=== PATIENT | male | born 1945 | race Caucasian/White ===

== ENCOUNTER 2022-04-23 13:06 | Observation (INO) ==
--- NOTE | 2022-04-23 13:21 | Emergency Department Note ---
Abdominal Pain HPI General Chief Complaint: Flank Pain Stated Complaint: R side sharp pain Time Seen by Provider: 04/23/22 13:19 Source: patient Mode of arrival: ambulatory Limitations: no limitations History of Present Illness HPI Narrative: Narrative: Patient presents emergency department by private vehicle with his with complaint of sudden onset of acute right lower quadrant abdominal pain that is also associated with right lower back or flank pain. Says the pain came on stabbing and suddenly initially was very intense and calm down and became intense again calm down that over the last couple hours it become more steady. He stated his when his symptoms first started 2 hours prior to arrival he felt like he had to have a bowel movement once he had a bowel movement the had worsening pain in the right lower quadrant and the right flank. The pain started after the bowel movement however. He denies any recent fever, chills, or unusual bowel movement. No dysuria or increased urinary frequency. He does admit to having nausea and vomiting the first event occurring secondary to significant pain. He has not had any other emesis however he is continues to be nauseous. He has baseline normal state of health otherwise and has not had any recent cough, chills, chest pain, difficulty breathing. He does not have chronic back pain. Related Data Home Medications Medication Instructions Recorded Confirmed multivitamin 1 cap PO DAILY 06/17/17 02/11/22 vitamins A,C,P-[id number] 14,320 1 each PO DAILY 09/09/18 02/11/22 unit-226 mg-200 unit capsule coenzyme Q10 [CoQ-10] 300 mg PO DAILY 12/28/18 02/11/22 saw palmetto 160 mg capsule 160 mg PO QDAY 12/28/18 02/11/22 Previous Rx's Medication Instructions Recorded rosuvastatin 20 mg tablet 20 mg PO QDAY #90 tabs 07/03/21 tadalafil 5 mg tablet (Cialis) 5 mg PO QDAY #90 tabs 10/23/21 azithromycin 250 mg tablet See Rx Instructions PO .COMPLEX #6 02/11/22 (Zithromax) tabs chloroquine phosphate 500 mg tablet See Rx Instructions PO .COMPLEX #8 02/11/22 tabs prednisone 20 mg tablet 20 mg PO BID 5 days #10 tabs 02/11/22 Allergies Allergy/AdvReac Type Severity Reaction Status Date / Time Penicillins Allergy Unknown Unknown Verified 04/23/22 13:18 Review of Systems ROS ROS Narrative: Narrative: Please see HPI for all pertinent positive and negative and the review of systems. PFSH Narrative Patient History Narrative: Narrative: Medical/Surgical/Family History All Active Problems (Updated 04/23/22 @ 15:03 by Lashawn Jiménez DO) Renal colic on right side (Acute) Ureterolithiasis (Acute) Acute UTI (Acute) Counseling about travel (Acute) Knee pain, left (Acute) Epistaxis (Acute) History of cigarette smoking (Acute) Sore throat (viral) (Acute) Sinus congestion (Acute) Hypogonadism in male (Acute) Hematospermia (Acute) BPH w urinary obs/LUTS (Chronic) Elevated PSA (Acute) Glaucoma (Chronic ~2019) Shoulder pain, right (Chronic) Osteoarthritis (Chronic) Erectile dysfunction (Chronic) Olecranon bursitis, right elbow (Chronic) Seborrheic keratosis (Chronic) URI (upper respiratory infection) (Chronic) Hypothyroidism (Chronic) Hyperlipidemia (Chronic) Tinnitus, left (Chronic) Sinusitis, acute (Chronic) Bronchitis, acute (Chronic) Hyperglycemia (Chronic) Status post insertion of penile implant (Chronic) Acute retention of urine (Chronic) History of transurethral resection of prostate (Chronic) Gross hematuria (Chronic) Medical History BPH w urinary obs/LUTS Mild symptoms but relatively unchanged Bronchitis, acute Elevated PSA Erectile dysfunction Stable with low libido Glaucoma (~2019) Hematospermia History of cigarette smoking Hyperglycemia Hyperlipidemia Hypogonadism in male Hypothyroidism Olecranon bursitis, right elbow Osteoarthritis Seborrheic keratosis Shoulder pain, right Sinusitis, acute Tinnitus, left URI (upper respiratory infection) Surgical History H/O arthroscopic knee surgery History of hernia repair Family History Other No pertinent family history Social History Smoking Status: Former smoker Alcohol Intake Frequency: 0-2 drinks per day Substance Use: does not use Exam Narrative Narrative: Narrative: General Limitations: no limitations General appearance: Present alert, grimacing (Appears uncomfortable and in pain.), in no apparent distress and nontoxic Head Head: Present atraumatic, normocephalic and normal inspection Eye Eye: Present normal appearance and EOMI; Absent scleral icterus, conjunctival injection or periorbital swelling ENT ENT: Present normal external ear exam and other (Normal gross peripheral exam of nose.) Neck Neck: Present normal inspection and trachea midline Chest Chest: Present normal inspection and symmetric chest wall rise Respiratory Respiratory: Present normal lung sounds bilaterally; Absent respiratory distress, stridor or accessory muscle use Cardiovascular Cardiovascular: Present regular rate, normal rhythm and normal heart sounds Adbominal Abdominal: Present soft, tenderness (Moderate to severe right lower quadrant. Pain worse on deep palpation. No rebound tenderness.), guarding (Right lower quadrant, mild.), normal bowel sounds and other (Positive mild to moderate renal CVAT tenderness on the right.); Absent distention, rebound, rigidity, Palafox's sign, ascites or pulsatile mass Rectal Rectal: Present deferred : Present other (Deferred.) Extremities Extremities: Present normal inspection and full ROM (No motion abnormalities noted on gross peripheral examination. No gross deformities to the extremities.); Absent tenderness, pedal edema or pretibial edema Neurological Neurological: Present alert, oriented X3 and CN II-XII intact; Absent motor sensory deficit (On gross peripheral examination.) Psychiatric Psychiatric: Present normal affect, normal mood and pleasant Skin Skin: Present warm (WNL), dry and normal color Course Course Course Narrative: Received call from Dr. Rodarte, radiologist, at approximate 1415 hours reporting a 5 x 7 mm right distal ureteral stone - Full report pending. 1458: Still awaiting CBC and CMP results. Urinalysis performed does show some blood in the urine and some white blood cells with leukocyte esterase suggestive of possible UTI or infection. We will going give patient RocephiN IV. 171: Spoke with Dr. Lopez in the ED. He is already seen and evaluated the patient. He spoke with the patient about coming in the hospital and getting the stone removed. Plan is to admit under his service. Dr. Lopez requests EKG for preop. 175: Reviewed portable chest x-ray which shows no acute process. Radiology overread is still pending. Reevaluation(s) Reevaluation #1: Reevaluate. Stable. States he has a mild amount discomfort like he has a tight belt around his waist. Does not require any further pain medications. He is nausea free. Discussed his diagnosis and plan for hospitalization with Dr. Lopez helping him remove his kidney stone. All questions answered. Patient and his at bedside are both agreeable with the plan of care. Dr. Lopez entering the room at the tail end of my reevaluation to speak with the patient's further about the admission and procedure. Time: 17:21 Consultations Consultation #1: Spoke with Dr. Lopez, urologist on-call regarding patient's presentation, imaging findings and lab findings. He has I speak with powerhouse mechanic see if we have beds available. I tried contacting the powerhouse mechanic at their number and no answer. I have advised the ED PRIMER INSPECTOR of this and she will attempt to contact the powerhouse mechanic for me. Time: 15:35 Consultation #2: Spoke with Dr. Lopez, he asked that a try figure out there is availability in the house for this gentleman so we can accommodate him and potentially get him in as an emergent/urgent removal of his right distal ureteral stone. Time: 15:48 Vital Signs Vital signs: Vital Signs Temperature 97.0 F 04/23/22 13:15 Pulse Rate 60 04/23/22 13:15 Respiratory Rate 18 04/23/22 13:15 Blood Pressure 163/85 04/23/22 13:15 Pulse Oximetry (%) 92 04/23/22 13:15 Oxygen Delivery Method 04/23/22 13:15 Temperature 97.0 F 04/23/22 13:15 Pulse Rate 58 L 04/23/22 16:46 Respiratory Rate 16 04/23/22 16:24 Blood Pressure 104/65 04/23/22 16:46 Pulse Oximetry (%) 93 04/23/22 16:46 Oxygen Delivery Method 04/23/22 13:33 Oxygen Flow Rate (L/min) 93 04/23/22 13:33 [facility] Narrative Medical decision making narrative: Narrative: Patient presents emerged part with acute right lower quadrant Patrick pain and right flank pain. Please see HPI, physical, chart above for full details. CT of the abdomen pelvis without contrast does show a 5 x 7 mm at the right distal ureter. Patient given pain control and antiemetics here in the emergency department. He is feeling better. I spoke with Dr. Lopez, urologist, who will admit to his service and plan for stone extraction tomorrow. Sepsis Sepsis Identified: No Differential Diagnosis Differential Diagnosis: Ureterolithiasis, appendicitis, bowel pathology, UTI Medical Records Medical records reviewed: Yes I reviewed the patient's medical records. Lab Data Lab results reviewed: Yes I reviewed the patient's lab results. Result diagrams: 04/23/22 14:02 04/23/22 14:02 Labs: Lab Results 04/23/22 04/23/22 04/23/22 Range/Units 13:30 14:02 14:02 WBC 8.2 (4.5-11.0) K/mcL RBC 4.71 (4.63-6.08) M/mcL Hgb 14.7 (13.7-17.5) g/dL Hct 43.7 (40.1-51.0) % MCV 92.8 (80.0-100.0) fL MCH 31.2 (26.0-34.0) pg MCHC 33.6 (31.0-36.0) g/dL RDW 12.0 (11.5-14.5) % Plt Count 159 (140-440) K/mcL MPV 11.9 (8.8-12.5) fL Immature Gran % (Auto) 0.4 (0.0-0.5) % Neut % (Auto) 65.8 (38.0-78.0) % Lymph % (Auto) 25.3 (15.5-49.0) % [place] % (Auto) 5.6 (1.0-12.0) % Eos % (Auto) 2.3 (0.0-7.0) % Baso % (Auto) 0.6 (0.0-2.0) % Lymph # (Auto) 2.07 (1.50-4.80) K/mcL [place] # (Auto) 0.46 (0.10-0.90) K/mcL Eos # (Auto) 0.19 (0.00-0.70) K/mcL Baso # (Auto) 0.05 (0.00-0.30) K/mcL Immature Gran # 0.03 (0.00-0.05) K/mcl Absolute Neutrophils 5.39 (1.80-8.00) K/mcL VBG Lactic Acid 1.6 (0.5-2.0) mmol/L Sodium 136 (133-145) mmol/L Potassium 4.0 (3.3-5.1) mmol/L Chloride 101 (96-108) mmol/L Carbon Dioxide 26 (22-30) mmol/L Anion Gap 9.0 (8.0-16.0) BUN 18 (8-23) mg/dL Creatinine 1.4 H (0.7-1.2) mg/dL GFR Calculation 49 Glucose 185 H (70-105) mg/dL Calcium 8.9 (8.6-10.4) mg/dL Total Bilirubin 0.5 (0.1-1.0) mg/dL AST 17 (<40) U/L ALT 24 (<40) U/L Alkaline Phosphatase 70 (39-117) U/L Total Protein 6.8 (5.9-8.4) gm/dL Albumin 4.1 (3.2-5.2) gm/dL Globulin 2.7 (2.2-3.7) gm/dL Albumin/Globulin Ratio 1.5 (1.0-2.3) Lipase 28 (7-60) U/L Urine Color Yellow Urine Appearance Hazy A (Clear) Urine pH 5.0 (5.0-9.0) Ur Specific [place] 1.020 (1.000-1.035) Urine Protein Negative (Negative) mg/dL Urine Glucose (UA) Negative (Negative) mg/dL Urine Ketones Negative (Negative) mg/dL Urine Occult Blood Negative (Negative) mg/dL Urine Nitrate Negative (Negative) Urine Bilirubin Negative (Negative) mg/dL Urine Urobilinogen Negative mg/dL Ur Leukocyte Esterase 25 A (Negative) /uL Urine RBC 9 H (0-3) /hpf Urine WBC 11 H (0-4) /hpf Ur Squamous Epith Cells 0 (0-4) /hpf Calcium Oxalate Crystal Few A (None) /hpf Urine Bacteria None (0) /hpf Urine Mucus Few A (None) /hpf Ur Culture Indicated? yes Radiology Data Radiology results reviewed: Yes I reviewed the patient's radiology results. Radiology results narrative: Ordering Physician:Lashawn Jiménez D.O. Date of Service:04/23/22 Procedure(s):CT abdomen pelvis wo con History: Right flank pain, question kidney stones TECHNIQUE: The abdomen was imaged without contrast in axial plane at 2.5 mm intervals. Sagittal and coronal reformats were created. The radiation exposure was limited using dose reduction technology. FINDINGS: Mild dependent atelectasis is present posteriorly in both lower lobes. The heart is borderline enlarged. Evaluation of the abdominal organs without contrast is somewhat limited. The liver and spleen are normal in size and homogeneous. The gallbladder appears normal without evidence of calcified stones or thickening of the wall. The bile ducts are nondilated. No mass or inflammation are detected in the pancreas. The adrenals are normal and symmetric. There are couple cortical cysts in the right kidney. The measure up to 3.5 cm. In an upper pole calyx of the right kidney there is a 4 x 5 mm nonobstructing stone. Mild hydronephrosis is present in the right kidney. Although the right ureter is not dilated, there is a 5 x 7 mm calculus at the ureterovesical junction. In a lower pole calyx of the left kidney there is a lobulated 7 x 8 mm calculus. There is no hydronephrosis in the left kidney. There are no stones in the left ureter. Urinary bladder is nearly empty and there are no stones within the lumen. Patient has a penile implant with a reservoir located behind the rectus abdominis muscle deep in the left lower pelvis. Prostate is normal in size and contains focal calcifications in the transitional zone. No mass, adenopathy or ascites are present. The bowel pattern is normal. There are couple noninflamed diverticula in the sigmoid and distal descending colon. There is arthritis and disc degeneration at L4-5 with a small posterior bulge and mild to moderate central canal stenosis. IMPRESSION: Bilateral kidney stones Mild hydronephrosis in the right kidney due to a 5 x 7 mm calculus at the ureterovesical junction. Dr. Jiménez was called with the report Interpreted and Authenticated by: Schuyler Rodarte 04/23/22 140 Auto Leasing Manager: <Electronically signed by Schuyler Rodarte M.D. in [place]> 04/23/22 1418 EKG Data EKG #1: EKG attestation: Yes I reviewed and interpreted this EKG. and Yes There are no EKG findings of acute coronary syndrome EKG results narrative: EKG obtained at 1737 hrs. interpreted by myself shows sinus rhythm with bradycardia 56 bpm. Left axis deviation is present. Intervals show DC borderline prolonged at 200 ms and remainder of intervals within normal limits. Morphology show no acute ST elevation or ST depression or acute T wave changes to suggest acute ischemia or infarct. No prior EKG available for comparison. No STEMI. Discharge Plan Patient/Caregiver Discharge Instructions Pt seen by STORAGE BATTERY INSPECTOR AND TESTER/PA only: No Clinical Impression: Renal colic on right side, Ureterolithiasis, Acute UTI Patient Disposition: Xfer As Inpt ([facility]) Follow up with: Florencio Palomares ARNP [Primary Care Provider] - Prescriptions: No Action rosuvastatin 20 mg tablet 20 mg PO QDAY Qty: 90 3RF tadalafil [Cialis] 5 mg tablet 5 mg PO QDAY Qty: 90 4RF prednisone 20 mg tablet 20 mg PO BID 5 Days Qty: 10 0RF azithromycin [Zithromax] 250 mg tablet See Rx Instructions PO .COMPLEX Qty: 6 0RF Rx Instructions: take 500 mg today (day 1), then 250 mg for 4 days (days 2-5) PO chloroquine phosphate 500 mg tablet See Rx Instructions PO .COMPLEX Qty: 8 0RF Rx Instructions: take 500mg same day each week x1wk before exposure, during time in area, and x4wk after leaving PO vitamins A,C,F-fcpu-dbcjvr 1 EACH capsule 1 each PO DAILY multivitamin 1 cap PO DAILY saw palmetto 160 mg capsule 160 mg PO QDAY coenzyme Q10 300 mg PO DAILY
[2022-04-23] MEDS ORDERED: ONDANSETRON 4 MG/2 ML VIAL IV ONE (13:32)
[2022-04-23] MEDS ORDERED: 0.9 % SODIUM CHLORIDE 1,000 ML IV ONE (13:32)
[2022-04-23] MEDS ORDERED: fentaNYL 100 MCG/2 ML VIAL IV PRN (13:32)
[2022-04-23] MEDS ORDERED: KETOROLAC 30 MG/ML VIAL IV ONE (13:32)
--- NOTE | 2022-04-23 14:22 | Cat Scan Report ---
History: Right flank pain, question kidney stones TECHNIQUE: The abdomen was imaged without contrast in axial plane at 2.5 mm intervals. Sagittal and coronal reformats were created. The radiation exposure was limited using dose reduction technology. FINDINGS: Mild dependent atelectasis is present posteriorly in both lower lobes. The heart is borderline enlarged. Evaluation of the abdominal organs without contrast is somewhat limited. The liver and spleen are normal in size and homogeneous. The gallbladder appears normal without evidence of calcified stones or thickening of the wall. The bile ducts are nondilated. No mass or inflammation are detected in the pancreas. The adrenals are normal and symmetric. There are couple cortical cysts in the right kidney. The measure up to 3.5 cm. In an upper pole calyx of the right kidney there is a 4 x 5 mm nonobstructing stone. Mild hydronephrosis is present in the right kidney. Although the right ureter is not dilated, there is a 5 x 7 mm calculus at the ureterovesical junction. In a lower pole calyx of the left kidney there is a lobulated 7 x 8 mm calculus. There is no hydronephrosis in the left kidney. There are no stones in the left ureter. Urinary bladder is nearly empty and there are no stones within the lumen. Patient has a penile implant with a reservoir located behind the rectus abdominis muscle deep in the left lower pelvis. Prostate is normal in size and contains focal calcifications in the transitional zone. No mass, adenopathy or ascites are present. The bowel pattern is normal. There are couple noninflamed diverticula in the sigmoid and distal descending colon. There is arthritis and disc degeneration at L4-5 with a small posterior bulge and mild to moderate central canal stenosis. IMPRESSION: Bilateral kidney stones Mild hydronephrosis in the right kidney due to a 5 x 7 mm calculus at the ureterovesical junction. Dr. Jiménez was called with the report Interpreted and Authenticated by: Schuyler Rodarte 04/23/22
[2022-04-23 14:54] LABS: Appearance,Urine HAZY (Clear); Bilirubin,Urine Negative (Negative); Calcium Oxalate Crystals,Urine FEW /hpf; Color,Urine YELLOW; Culture Indicated,Urine yes; Glucose,Urine (UA) Negative (Negative); Ketones,Urine Negative (Negative); Leukocyte Esterase,Urine 25 /uL (Negative); Mucus,Urine FEW /hpf; Nitrate,Urine Negative (Negative); Protein,Urine Negative (Negative); Urine Blood Negative (Negative); Urine RBC 9 /hpf (0-3); Urine Squamous Epithelial Cell 0 /hpf (0-4); Urine WBC 11 /hpf (0-4); Urobilinogen,Urine Negative
[2022-04-23] MEDS ORDERED: cefTRIAXone 1 GM VIAL IV ONE (15:00)
[2022-04-23 15:09] LABS: Basophils # (Auto) 0.05 K/mcL (0.00-0.30); Basophils % (Auto) 0.6 % (0.0-2.0); Eosinophils # (Auto) 0.19 K/mcL (0.00-0.70); Eosinophils % (Auto) 2.3 % (0.0-7.0); Hematocrit 43.7 % (40.1-51.0); Hemoglobin 14.7 g/dL (13.7-17.5); Lymphocytes # (Auto) 2.07 K/mcL (1.50-4.80); Lymphocytes % (Auto) 25.3 % (15.5-49.0); Mean Cell Volume 92.8 fL (80.0-100.0); Mean Corpuscular HGB Conc 33.6 g/dL (31.0-36.0); Mean Platelet Volume 11.9 fL (8.8-12.5); Monocytes # (Auto) 0.46 K/mcL (0.10-0.90); Monocytes % (Auto) 5.6 % (1.0-12.0); Neutrophils % (Auto) 65.8 % (38.0-78.0); Platelet Count 159 K/mcL (140-440); RBC 4.71 M/mcL (4.63-6.08); WBC 8.2 K/mcL (4.5-11.0)
[2022-04-23 15:31] LABS: ALT/SGPT 24 U/L (<40); AST/SGOT 17 U/L (<40); Albumin 4.1 gm/dL (3.2-5.2); Albumin/Globulin Ratio 1.5 (1.0-2.3); Alkaline Phosphatase 70 U/L (39-117); Bilirubin,Total 0.5 mg/dL (0.1-1.0); Blood Urea Nitrogen 18 mg/dL (8-23); Calcium 8.9 mg/dL (8.6-10.4); Carbon Dioxide 26 mmol/L (22-30); Chloride 101 mmol/L (96-108); Globulin 2.7 gm/dL (2.2-3.7); Glomerular Filtration Rate 49; Glucose 185 mg/dL (70-105)
--- NOTE | 2022-04-23 17:03 | Urology History & Physical ---
HPI History of Present Illness Patient information: Note initiated : 04/23/22 at 4:59 pm Service Date, if different from initiated Date: [] Patient: Tacho Vasquez a 76 y/o M admitted on for R side sharp pain. Chief Complaint: [Right distal ureteral stone with pain] Chief complaint: Right distal ureteral stone with pain History of present illness: Tacho is a 76-year-old male who presented to our emergency department today with the acute onset of right lower quadrant abdominal pain radiating to the right flank. He denied any history of fever, chills, dysuria or urinary frequency. He reported some nausea and emesis. He reports a remote history of stone in 1981 which he passed on his own. He has a history of BPH with urinary obstruction and is status post greenlight photo vaporization of the prostate. He also has a history of erectile dysfunction with placement of a 3 piece inflatable penile prosthesis he is followed by my office and was last seen on July 10, [address] Hong. His most recent PSA was 5.22 on May 23, 2021. Labs in the ER today reveal normal white blood cell count and a mildly elevated serum creatinine of 1.4. Urinalysis today shows9 red blood cells, 11 white blood cells and no bacteria. In the emergency room he was given 1 g of Rocephin. Urology consultation was obtained. His is present with him today. Review of Systems All systems: reviewed and no additional remarkable complaints except as stated Constitutional Constitutional: Present as per HPI Genitourinary Genitourinary: difficulty urinating and flank pain PFSH PFSH All Active Problems (Updated 04/23/22 @ 17:55 by John Lopez MD) Right ureteral stone (Acute) BPH w urinary obs/LUTS (Chronic) Acute retention of urine (Chronic) History of transurethral resection of prostate (Chronic) Gross hematuria (Chronic) Status post insertion of penile implant (Chronic) Hyperglycemia (Chronic) Bronchitis, acute (Chronic) Sinusitis, acute (Chronic) Tinnitus, left (Chronic) Hyperlipidemia (Chronic) Hypothyroidism (Chronic) URI (upper respiratory infection) (Chronic) Seborrheic keratosis (Chronic) Olecranon bursitis, right elbow (Chronic) Erectile dysfunction (Chronic) Osteoarthritis (Chronic) Shoulder pain, right (Chronic) Glaucoma (Chronic ~2019) Elevated PSA (Acute) Hematospermia (Acute) Hypogonadism in male (Acute) Sinus congestion (Acute) Sore throat (viral) (Acute) History of cigarette smoking (Acute) Epistaxis (Acute) Knee pain, left (Acute) Counseling about travel (Acute) Renal colic on right side (Acute) Ureterolithiasis (Acute) Acute UTI (Acute) Medical History BPH w urinary obs/LUTS Mild symptoms but relatively unchanged Bronchitis, acute Elevated PSA Erectile dysfunction Stable with low libido Glaucoma (~2019) Hematospermia History of cigarette smoking Hyperglycemia Hyperlipidemia Hypogonadism in male Hypothyroidism Olecranon bursitis, right elbow Osteoarthritis Seborrheic keratosis Shoulder pain, right Sinusitis, acute Tinnitus, left URI (upper respiratory infection) Surgical History H/O arthroscopic knee surgery History of hernia repair Family History Other No pertinent family history Social History household members: spouse marital status: physical activity: walking and weight training frequency: 3-4 times per week smoking status: Former smoker quit date: 04/27/1968 pack-years: 16 alcohol intake frequency: 0-2 drinks per day substance use type: does not use seatbelt use: always MEDS/ALLERGIES Home Medications and Allergies Home Medications Medication Instructions Recorded Confirmed Type multivitamin 1 cap PO DAILY 06/17/17 02/11/22 History vitamins A,C,B-zolr-acnoyf 14,320 1 each PO DAILY 09/09/18 02/11/22 History unit-226 mg-200 unit capsule coenzyme Q10 [CoQ-10] 300 mg PO DAILY 12/28/18 02/11/22 History saw palmetto 160 mg capsule 160 mg PO QDAY 12/28/18 02/11/22 History rosuvastatin 20 mg tablet 20 mg PO QDAY #90 tabs 07/03/21 02/11/22 Rx tadalafil 5 mg tablet (Cialis) 5 mg PO QDAY #90 tabs 10/23/21 02/11/22 Rx azithromycin 250 mg tablet See Rx Instructions PO .COMPLEX #6 02/11/22 02/11/22 Rx (Zithromax) tabs chloroquine phosphate 500 mg tablet See Rx Instructions PO .COMPLEX #8 02/11/22 02/11/22 Rx tabs prednisone 20 mg tablet 20 mg PO BID 5 days #10 tabs 02/11/22 02/11/22 Rx Allergies Allergy/AdvReac Type Severity Reaction Status Date / Time Penicillins Allergy Unknown Unknown Verified 04/23/22 13:18 Physical Examination Vital Signs Vital signs: Temp Pulse Resp BP Pulse Ox O2 Del Method O2 Flow Rate 97.0 F 60 16 99/62 94 93 04/23/22 13:15 04/23/22 16:32 04/23/22 16:24 04/23/22 16:32 04/23/22 16:32 04/23/22 13:33 04/23/22 13:33 General physical appearance General physical exam: well developed, well nourished, no distress and moderate pain Head Head exam IM: Present atraumatic, normal inspection and normocephalic Neck Neck exam: trachea midline Cardiovascular Cardiovascular exam IM: Present normal rate and rhythm Respiratory Respiratory exam: normal expansion, normal respiratory effort and clear to auscultation Abdomen Abdomen: Present soft and non tender Neurologic Neurologic: Present normal coordination and normal sensation Psychiatric Psychiatric: Present oriented to time, oriented to person, oriented to place, speech is normal and memory intact Results Labs Result diagrams: 04/23/22 14:02 04/23/22 14:02 Labs: Abnormal lab results 04/23/22 04/23/22 Range/Units 13:30 14:02 Creatinine 1.4 H (0.7-1.2) mg/dL Glucose 185 H (70-105) mg/dL Urine Appearance Hazy A (Clear) Ur Leukocyte Esterase 25 A (Negative) /uL Urine RBC 9 H (0-3) /hpf Urine WBC 11 H (0-4) /hpf Calcium Oxalate Crystal Few A (None) /hpf Urine Mucus Few A (None) /hpf Diabetes panel 04/23/22 Range/Units 14:02 Sodium 136 (133-145) mmol/L Potassium 4.0 (3.3-5.1) mmol/L Chloride 101 (96-108) mmol/L Carbon Dioxide 26 (22-30) mmol/L BUN 18 (8-23) mg/dL Creatinine 1.4 H (0.7-1.2) mg/dL Glucose 185 H (70-105) mg/dL Calcium 8.9 (8.6-10.4) mg/dL AST 17 (<40) U/L ALT 24 (<40) U/L Alkaline Phosphatase 70 (39-117) U/L Total Protein 6.8 (5.9-8.4) gm/dL Albumin 4.1 (3.2-5.2) gm/dL Calcium panel 04/23/22 Range/Units 14:02 Calcium 8.9 (8.6-10.4) mg/dL Albumin 4.1 (3.2-5.2) gm/dL Pituitary panel 04/23/22 Range/Units 14:02 Sodium 136 (133-145) mmol/L Potassium 4.0 (3.3-5.1) mmol/L Chloride 101 (96-108) mmol/L Carbon Dioxide 26 (22-30) mmol/L BUN 18 (8-23) mg/dL Creatinine 1.4 H (0.7-1.2) mg/dL Glucose 185 H (70-105) mg/dL Calcium 8.9 (8.6-10.4) mg/dL Adrenal panel 04/23/22 Range/Units 14:02 Sodium 136 (133-145) mmol/L Potassium 4.0 (3.3-5.1) mmol/L Chloride 101 (96-108) mmol/L Carbon Dioxide 26 (22-30) mmol/L BUN 18 (8-23) mg/dL Creatinine 1.4 H (0.7-1.2) mg/dL Glucose 185 H (70-105) mg/dL Calcium 8.9 (8.6-10.4) mg/dL Total Bilirubin 0.5 (0.1-1.0) mg/dL AST 17 (<40) U/L ALT 24 (<40) U/L Alkaline Phosphatase 70 (39-117) U/L Total Protein 6.8 (5.9-8.4) gm/dL Albumin 4.1 (3.2-5.2) gm/dL All other labs normal. Imaging CT scan - abdomen: report reviewed and image reviewed CT scan - pelvis: report reviewed and image reviewed A/P Assessment and plan (1) BPH w urinary obs/LUTS: Status: Chronic Comment: Mild symptoms but relatively unchanged (2) Right ureteral stone: Status: Acute Sepsis Sepsis Identified: No Narrative A/P Narrative: Tacho is a 76-year-old male with a remote history of kidney stones. He had the acute onset of right lower abdominal pain that radiated to the right flank. He presented to the emergency room where a CT KUB was obtained that showed a 5 x 7 mm right ureterovesical junction stone. His pain is currently adequately controlled. There is no sign of infection. We discussed keeping him overnight for observation and taking him to the operating room tomorrow to treat the stone. He has a history of erectile dysfunction and a penile prosthesis in place. He also has a history of BPH and prior photo vaporization of the prostate. He has continued difficulty with urination although it is better than it was prior to his surgery. We discussed going to the operating room and under general anesthesia, as an outpatient, performing cystoscopy, right retrograde pyelogram, right ureteroscopy, right laser lithotripsy, right ureteral stone basketing, and right ureteral stent placement. I discussed the procedure with the patient. We disc ussed possible risks and side effects including, but not limited to: bleeding, infection, damage to the urethra and to the bladder, damage to the right ureter and right kidney, postoperative urgency and frequency, postoperative hematuria, incomplete treatment of the stone, need for further treatment and/or surgery, small risks of heart attack, stroke and , and risks of anesthesia that the patient will discuss separately with the anesthesia provider prior to the procedure. The patient understands that at the time of the procedure we will place a right ureteral stent. I explained what this is and that it is a temporary device. This will need to be removed in the office approximately 1 week after definitive treatment of the stone. The patient understands the procedure and its associated risks. a Signed consent form was obtained. Time Spent With Patient Time: Total time spent is greater than 50% in coordination of care (as documented) at patient's floor/unit and/or counseling patient:
[2022-04-23] MEDS ORDERED: ONDANSETRON 4 MG/2 ML VIAL IV PRN (17:55)
[2022-04-23] MEDS ORDERED: MAGNESIUM HYDROXIDE 30 ML ORAL.SUSP PO PRN (17:55)
[2022-04-23] MEDS ORDERED: oxyCODONE/APAP 5/325MG TABLET PO PRN (17:55)
[2022-04-23] MEDS ORDERED: MAG HYDROX/AL HYDROX/SIMETH 30 ML ORAL.SUSP PO PRN (17:55)
[2022-04-23] MEDS ORDERED: morphine 4 MG/ML VIAL IV PRN (17:55)
--- NOTE | 2022-04-23 18:22 | XRay Report ---
HISTORY: Preop FINDINGS: Right diaphragm is mildly elevated. This is of undetermined etiology. This has increased since 12/12/14. The lungs are clear. Heart size and pulmonary vasculature are normal. Aorta is mildly tortuous. IMPRESSION: No acute abnormality Interpreted and Authenticated by: Schuyler Rodarte 04/23/22
[2022-04-23] MEDS: DEXTROSE 5%-1/2NS W/20MEQ KCL 1,000 ML IV SCH (19:00)
[2022-04-23] MEDS: 0.9 % SODIUM CHLORIDE 10 ML SYRINGE IV SCH (21:01)
[2022-04-24] MEDS: 0.9 % SODIUM CHLORIDE 10 ML SYRINGE IV SCH ×2 (05:38→15:27)
[2022-04-24] MEDS ORDERED: ceFAZolin 2 GM in DEXTROSE 5% IN WATER 50 ML IV SCH (06:00)
[2022-04-24] MEDS ORDERED: IPRATROPIUM/ALBUTEROL 3 ML AMPUL.NEB NEB PRN ×2 (07:58→12:45)
[2022-04-24] MEDS ORDERED: SCOPOLAMINE 1 PATCH PATCH TOPICAL PRN (07:58)
--- NOTE | 2022-04-24 10:17 | EKG ---
[facility] Test Date: 2022-04-23 Pat Name: Tacho Vasquez Department: ED Room: Gender: Male Facility Practice Specialist: LR : [id number] Requested By: Lashawn Jiménez Order Number: [id number] Reading MD: Luis Rodarte M.D. Measurements Intervals [place] Rate: 56 P: 43 TX: 200 QRS: -15 QRSD: 93 T: 17 QT: 439 QTc: 424 Interpretive Statements Sinus rhythm Electronically Signed On 04-24-2022 10:17:41 PST by Luis Rodarte M.D. /store/M0/[id number]
[2022-04-24] MEDS ORDERED: LIDOCAINE 2% URO-JET 10 ML JEL.PF.APP UR ONE (11:04)
[2022-04-24] MEDS ORDERED: DEXAMETHASONE 10 MG/ML VIAL ONE (12:36)
[2022-04-24] MEDS ORDERED: KETAMINE 50 MG/ML Syringe (ANEST) IV ONE (12:36)
[2022-04-24] MEDS ORDERED: MAGNESIUM SULFATE 2 GM/50 ML BAG IV ONE (12:36)
[2022-04-24] MEDS ORDERED: GLYCOPYRROLATE 0.2 MG/ML VIAL IV ONE (12:36)
[2022-04-24] MEDS ORDERED: fentaNYL 100 MCG/2 ML VIAL IV ONE (12:36)
[2022-04-24] MEDS ORDERED: LIDOCAINE HCL/PF 100 MG/5 ML SYRINGE IV ONE (12:36)
[2022-04-24] MEDS ORDERED: PROPOFOL 200 MG/20 ML VIAL IV ONE (12:36)
[2022-04-24] MEDS ORDERED: ONDANSETRON 4 MG/2 ML VIAL ONE (12:36)
[2022-04-24] MEDS ORDERED: LACTATED RINGERS 250 ML IV PRN (12:45)
[2022-04-24] MEDS ORDERED: NALOXONE HCL 0.4 MG/ML VIAL IV PRN (12:45)
[2022-04-24] MEDS ORDERED: METHOCARBAMOL 1,000 MG/10 ML VIAL IV PRN (12:45)
[2022-04-24] MEDS ORDERED: METOPROLOL TARTRATE 5 MG/5 ML VIAL IV PRN (12:45)
[2022-04-24] MEDS ORDERED: ACETAMINOPHEN 1,000 MG/100 ML BAG IV ONE (12:45)
[2022-04-24] MEDS ORDERED: fentaNYL 100 MCG/2 ML VIAL IV PRN (12:45)
[2022-04-24] MEDS ORDERED: LABETALOL 5 MG/ML ML IV PRN (12:45)
[2022-04-24] MEDS ORDERED: ONDANSETRON 4 MG/2 ML VIAL IV PRN ×2 (12:45→13:30)
[2022-04-24] MEDS ORDERED: LACTATED RINGERS 1,000 ML IV SCH (12:45)
[2022-04-24] MEDS ORDERED: IOVERSOL 20 ML VIAL IJ ONE (12:46)
--- NOTE | 2022-04-24 13:29 | Operative Note ---
Brief Operative Note Date of procedure: 04/24/22 Pre-op diagnosis: Right distal ureteral stone with obstruction Post-op diagnosis: same Procedure: Cystoscopy, right retrograde pyelogram, right ureteroscopy, right laser lithotripsy, Grafts/Implants: Yes (6 [place] by 24 cm right ureteral stent with no string) Anesthesia: GLMA Findings: 5 x 7 mm right distal ureteral stone with obstruction. Complications: none Surgeon: John Lopez Estimated blood loss (cc): 5 Specimens Removed/Pathology: none sent Condition: stable Disposition: PACU Operative Note Operative Note: After obtaining informed consent from the patient, he was brought to the operating was placed upon on the operating table. General anesthesia was provided. He was repositioned in a dorsolithotomy position was prepped and draped in usual sterile fashion. Attention was directed to the urethral meatus where a 21 [place] scope was passed per urethra and into the bladder. The tamiko dder was inspected and seen to be free of tumors and stones. Both right and left ureteral orifices were identified in their normal anatomic positions. The right ureteral orifice was cannulated using a 0.38 [place] sensor wire which would not pass the stone which was obstructing. I was able to pass a 5 [place] open-end ureteral catheter into the right ureteral orifice and manipulate a straight Glidewire alongside the stone into the right upper pole. The open ureteral catheter was removed leaving the wire in place. A long semirigid ureteroscope was then passed per urethra into the bladder. It would not into the right ureteral orifice. I therefore removed to the semirigid ureteroscope and dilated the ureteral orifice using the obturator from the ureteral access sheath. I then replaced to the long semirigid ureteroscope I was able to get to the stone. Using a 200 m laser fiber at ureteral fragmentation settings the stone was broken into tiny pieces which were basketed out using a 1.9 [place] nitinol tipless basket and placed in the bladder. Right retrograde Polygram was then performed showing proximal ureterectasis and hydronephrosis. The long semirigid ureteroscope was removed. The wire was backloaded through the 21 [place] cystoscope which was passed into the bladder. A 6 [place] by 24 cm regular stent with no string was passed over the wire and under fluoroscopic guidance into the right renal pelvis. The wire was removed leaving a good curl in the right renal pelvis and a good curl within the bladder. The bladder was irrigated and drained. The cystoscope was removed. Lidocaine jelly was placed in urethra and the bladder. The patient was returned to the supine position. The fragments were too small to send for pathology or stone analysis.
--- NOTE | 2022-04-24 13:29 | Discharge Plan ---
Discharge Plan Patient/Caregiver Discharge Instructions Activity: increase activity as tolerated and resume usual activities as tolerated Diet: Regular Diet Prescriptions: New hydrocodone-acetaminophen 5-325 mg tablet 1 tab PO Q6H PRN (Reason: pain) Qty: 8 0RF sulfamethoxazole-trimethoprim [Bactrim DS] 800-160 mg tablet 1 tab PO BID Qty: 14 0RF Continued rosuvastatin 20 mg tablet 20 mg PO QDAY Qty: 90 3RF tadalafil [Cialis] 5 mg tablet 5 mg PO QDAY Qty: 90 4RF vitamins A,C,H-hawu-vpdhar 1 EACH capsule 1 each PO BID multivitamin 1 cap PO DAILY saw palmetto 160 mg capsule 160 mg PO QDAY coenzyme Q10 300 mg PO DAILY Follow Up Plan Follow up with: Florencio Palomares ARNP [Primary Care Provider] - Patient Disposition: Home, Self-Care Discharge Orders: Discharge Order (Routine); Ordered 04/24/22 Ordered By: John Lopez
[2022-04-24] MEDS ORDERED: HYDROcodone/APAP 5/325MG TABLET PO PRN (13:30)
[2022-04-24] MEDS ORDERED: HYDROmorphone 1 MG/ML SYRINGE IV PRN (13:30)
[2022-04-24] MEDS ORDERED: 0.9 % SODIUM CHLORIDE 10 ML SYRINGE IV SCH (14:00)
--- NOTE | 2022-04-24 16:33 | XRay Report ---
HISTORY: FINDINGS: IMPRESSION: 0.7 minutes of fluoroscopy time was used. Interpreted and Authenticated by: Schuyler Rodarte 04/24/22
[2022-04-24] MEDS ORDERED: ceFAZolin 1 GM VIAL IV ONE (17:59)
[2022-04-24] MEDS: DEXTROSE 5%-1/2NS W/20MEQ KCL 1,000 ML IV SCH (18:03)
== END 2022-04-24 18:40 | disposition home or self-care (01) ==
LOC: MEDSUR 13:06 → ED 13:06 → MEDSUR 16:40
PROVIDERS: ADMIT Urology; ATTEND Urology